=== PATIENT | male | born 1995 | race Caucasian/White ===

== ENCOUNTER 2018-12-13 08:44 | Emergency (ER) | payer SELFPAY ==
[2018-12-13] MEDS: LIDOCAINE 1% (MPF) 5 ML VIAL INJ (09:20)
[2018-12-13] MEDS: SILVER NITRATE SWAB TOP (09:48)
== END 2018-12-13 11:46 | disposition home or self-care (01) ==
LOC: FTE 11:46
DX: S61.212A Laceration without foreign body of right middle finger without damage to nail, initial encounter (principal); V18.4XXA Pedal cycle driver injured in noncollision transport accident in traffic accident, initial encounter
CPT/HCPCS: 12001; 73140; 99283-25